=== PATIENT | male | born 1985 | race Caucasian/White ===

== ENCOUNTER 2016-12-16 13:43 | Emergency (ER) | payer OTHER ==
[~2016-12-16] VITALS: Ht 182.9 cm; Wt 98.9 kg
[2016-12-16 13:45] VITALS: BP 144/88
--- NOTE | 2016-12-16 14:00 | PHYS DOC ---
Past Medical History Past Medical History: No Pertinent History Past Surgical History: No Surgical History Alcohol Use: Occasionally Drug Use: None Adult General Chief Complaint Chief Complaint: UPPER EXTREMITY PAIN HPI HPI Patient is a 31 year old male presents emergency department stating that he was at the [employer] party when someone went to fall and he tried to catch got his arm caught patient person. Patient states that he didn't think anything about it with physician yesterday and today noticed that he had increased difficulty with movement and it was very sore. States he has not taken anything for pain and discomfort. Shins peripheral pulses are 2+ cap refill brisk less than 2 seconds. Patient states that he has pain in the left forearm. He is right -hand dominant. Review of Systems Review of Systems Constitutional: Denies fever or chills [] Eyes: Denies change in visual acuity, redness, or eye pain [] HENT: Denies nasal congestion or sore throat [] Respiratory: Denies cough or shortness of breath [] Cardiovascular: No additional information not addressed in HPI [] GI: Denies abdominal pain, nausea, vomiting, bloody stools or diarrhea [] : Denies dysuria or hematuria [] Musculoskeletal: Denies back pain. Patient with left forearm pain Integument: Denies rash or skin lesions [] Neurologic: Denies headache, focal weakness or sensory changes [] Endocrine: Denies polyuria or polydipsia [] Allergies Allergies Allergies Coded Allergies Type Severity Reaction Last Updated Verified No Known Drug Intolerances Allergy Unknown 01/23/14 No Physical Exam Physical Exam Constitutional: Well developed, well nourished, no acute distress, non-toxic appearance. [] HENT: Normocephalic, atraumatic, bilateral external ears normal, oropharynx moist, no oral exudates, nose normal. [] Eyes: PERRLA, EOMI, conjunctiva normal, no discharge. [] Neck: Normal range of motion, no tenderness, supple, no stridor. [] Cardiovascular:Heart rate regular rhythm, no murmur [] Lungs & Thorax: Bilateral breath sounds clear to auscultation [] Skin: Warm, dry, no erythema, no rash. [] Back: No tenderness Extremities: Left forearm tenderness, no cyanosis, no clubbing, ROM intact, no edema. Swelling and slight deformity noted although patient has peripheral pulses are 2+ cap refill brisk less than 2 seconds. Neurologic: Alert and oriented X 3, normal motor function, normal sensory function, no focal deficits noted. [] Psychologic: Affect normal, judgement normal, mood normal. [] Current Patient Data Vital Signs Vital Signs Date Time Temp Pulse Resp B/P (MAP) Pulse Ox O2 Delivery O2 Flow Rate FiO2 12/16/16 13:45 97.6 72 16 98 Room Air 97.6 EKG EKG [] Radiology/Procedures Radiology/Procedures [][facility] [address] [place] [address] IMAGING REPORT Signed PATIENT: KWAKU MAIN ACCOUNT: [id number] : 1985 LOCATION: ER AGE: 31 SEX: M EXAM STATUS: PRE ER ORD. PHYSICIAN: MONY YEPEZ APRN REASON: pain and tender after someone fell on him PROCEDURE: FOREARM LEFT Indication: Pain and swelling, someone fell on arm. Technique: 2 views of the left forearm are submitted for review. No comparison is available. Findings: There is no fracture or osseous lesion. Impression: Negative for fracture. DICTATED and SIGNED BY: CHRIS LAIRD MD DATE: 12/16/16 1421 CC: MONY YEPEZ APRN; TYLER GONZALEZ DO ~ Course & Med Decision Making Course & Med Decision Making Pertinent Labs and Imaging studies reviewed. (See chart for details) X-ray negative for any fractures. Patient will be placed in an Ed wrap. Recommended ice packs on 20 minutes off 20 minutes several times a day. Elevation as much as possible. So recommended ibuprofen 800 mg every 8 hours. Patient will be discharged home in stable condition signs symptoms to return back to emergency prior has been provided. [] Dragon Disclaimer Dragon Disclaimer This electronic medical record was generated, in whole or in part, using a voice recognition dictation system. Departure Departure Impression: Primary Impression: Contusion of left forearm Disposition: 01 HOME, SELF-CARE Condition: STABLE Referrals: TYLER GONZALEZ DO (PCP) Patient Instructions: Contusion, [id number] Additional Instructions: Your x-ray was negative for any bony abnormalities. Ice packs on 20 minutes off 20 minutes several times a day. Elevation as much as possible. Ibuprofen 800 mg every 8 hours with food stop taking few develop an upset stomach. Wear the Ed wrap for the next 5-7 days. Return back to emergency prior signs symptoms of become worse. Follow-up with orthopedic as needed for severe pain and discomfort. MONY YEPEZ APRN December 16, 2016 14:00
--- NOTE | 2016-12-16 14:24 | RAD ---
Indication: Pain and swelling, someone fell on arm. Technique: 2 views of the left forearm are submitted for review. No comparison is available. Findings: There is no fracture or osseous lesion. Impression: Negative for fracture.
== END 2016-12-16 14:45 | disposition home or self-care (01) ==
LOC: ER 14:27
DX: S50.12XA Contusion of left forearm, initial encounter (principal); X50.9XXA Other and unspecified overexertion or strenuous movements or postures, initial encounter; Y93.89 Activity, other specified; Y99.8 Other external cause status; Y92.89 Other specified places as the place of occurrence of the external cause
CPT/HCPCS: 73090; 99284